=== PATIENT | male | born 1945 | race Caucasian/White ===

== ENCOUNTER 2016-06-11 09:39 | Day surgery (SDC) | payer OTHER ==
[~2016-06-11] VITALS: Ht 170.2 cm; Wt 76.2 kg
[~2016-06-11 09:39] MED LIST: FISH OIL 1,2001 EAC4 PO; GINKGO BILOBA120 M1 PO; MEN 50 PLUS MU1 EACH PO
== END 2016-06-11 16:08 | disposition home or self-care (01) ==
LOC: CATH 09:39
DX: I35.0 Nonrheumatic aortic (valve) stenosis (principal); I10 Essential (primary) hypertension; E78.5 Hyperlipidemia, unspecified
CPT/HCPCS: C1769; C1887; C1894; J1644; J2250; J3010; J3246; J7050